=== PATIENT | female | born 1930 | race Caucasian/White ===

== ENCOUNTER 2018-06-03 15:05 | Emergency (ER) | payer MEDICARE ==
[~2018-06-03] VITALS: Ht 160 cm; Wt 63.6 kg
[2018-06-03 15:27] VITALS: Ht 160 cm; Wt 63.6 kg
[2018-06-03] MEDS ORDERED: GLIPIZIDE10 MG PO (15:28)
[2018-06-03] MEDS ORDERED: GLUCOPHAGE500 MG PO (15:28)
[2018-06-03] MEDS ORDERED: NAMENDA5 MG (15:29)
[2018-06-03] MEDS ORDERED: LANOXIN125 MCG (15:29)
[2018-06-03] MEDS ORDERED: RIVASTIGMINE3 MG (15:30)
[2018-06-03] MEDS ORDERED: NEURONTIN 300300 MG PO (15:30)
[2018-06-03] MEDS ORDERED: BAYER CHEWABLE81 MG PO (15:30)
[2018-06-03] MEDS ORDERED: DEPRESSION MED (15:30)
[2018-06-03 16:54] LABS: BASOPHILS 0.7 % (0-2); EOSINOPHILS 1.3 % (0-7); HEMATOCRIT 32.4 % (36.0-48.0); HEMOGLOBIN 10.4 g/dL (12-16); IMMATURE GRANULOCYTES 0.1 % (0-5); MCH 26.5 pg (26.0-34.0); MCHC 32.1 g/dL (31.0-37.0); MCV 82.4 fL (80.0-100.0); MEAN PLATELET VOLUME 9.9 fL (7.4-10.4); MONOCYTES 6.5 % (2-11); NEUTROPHILS 64.4 % (40-80); PLATELET COUNT 248 10x3/uL (130-400); RBC 3.93 10x6/uL (4.00-5.40); RDW 15.2 % (11.5-14.5); WBC 6.7 10x3/uL (4.8-10.8)
[2018-06-03 17:05] LABS: APPEARANCE CLEAR (CLEAR); BILIRUBIN NEGATIVE (NEGATIVE); COLOR YELLOW (YELLOW); GLUCOSE 250 mg/dL (NEGATIVE); KETONE NEGATIVE (NEGATIVE); NITRITE NEGATIVE (NEGATIVE); PROTEIN NEGATIVE (NEGATIVE); UROBILINOGEN NORMAL (NORMAL)
[2018-06-03 17:07] LABS: EPITHELIAL CELLS 0-5 /hpf (0-5); RED CELLS - URINE OCC /hpf (0-5)
[2018-06-03 17:08] LABS: BACTERIA FEW /hpf (NONE SEEN)
[2018-06-03 17:09] LABS: KETONE - SERUM NEGATIVE (NEGATIVE)
[2018-06-03 17:21] LABS: ALBUMIN 3.8 g/dL (3.4-5.0); ALKALINE PHOSPHATASE 44 U/L (46-116); BILIRUBIN - TOTAL 0.27 mg/dL (0.2-1.3); CALC OSMOLALITY 279 mosm/kg (275-300); CALCIUM 8.6 mg/dL (8.5-10.1); CARBON DIOXIDE 22.9 mmol/L (21.0-32.0); CHLORIDE - SERUM 97 mmol/L (98-107); CREATININE - SERUM 1.4 mg/dL (0.6-1.3); GLUCOSE 267 mg/dL (74-106); POTASSIUM - SERUM 4.2 mmol/L (3.5-5.1); SODIUM 134 mmol/L (136-145); UREA NITROGEN 20 mg/dL (7-18); eGFR NON AFRICAN AMERICAN 38 mL/min (90-120)
[2018-06-03 17:22] LABS: ALT (SGPT) 55 U/L (10-68); PROTEIN - SERUM 8.4 g/dL (6.4-8.2); TROPONIN-I < 0.017 ng/mL (0.000-0.060)
[2018-06-03 18:54] VITALS: BP 182/70
== END 2018-06-03 18:40 | disposition home or self-care (01) ==
LOC: D.ER 15:05
PROVIDERS: Family Medicine
DX: R53.1 Weakness (principal); E11.649 Type 2 diabetes mellitus with hypoglycemia without coma; M25.562 Pain in left knee; M25.561 Pain in right knee; W18.30XA Fall on same level, unspecified, initial encounter; Y93.89 Activity, other specified; Y92.481 Parking lot as the place of occurrence of the external cause; I10 Essential (primary) hypertension; F03.90 Unspecified dementia, unspecified severity, without behavioral disturbance, psychotic disturbance, mood disturbance, and anxiety